=== PATIENT | male | born 1935 | race Caucasian/White ===

== ENCOUNTER → 2017-07-24 | Outpatient (CLI) | payer MEDICARE, OTHER ==
[~2017-07-24] MED LIST: COUMADIN; DOXY100 PO; HCTZ; HYDACE10B PO; LEVSOD100; LEVSOD25; LOSA25 PO; LOSARTIN; METO25ER PO; METOPROLOL; NORVASC; OXYACE5T PO; PROM25 PO; TAMS.4ER PO; WARF7.5 PO
== END ==
LOC: PLD 13:47 → LAB SHORT 13:47
DX: D48.5 Neoplasm of uncertain behavior of skin (principal)
CPT/HCPCS: 88305

== ENCOUNTER → 2019-05-20 | Outpatient (CLI) | payer MEDICARE, OTHER ==
[~2019-05-20] MED LIST changes: +CHOL10002; +ELIQUIS5 MG PO; +POTCIT10
[2019-05-20 13:12] LABS: Hematocrit 45.2 % (37.0-53.0); Hemoglobin 14.3 g/dL (13.5-17.5); Mean Corpuscular HGB 31.4 pg (26.0-34.0); Mean Corpuscular HGB Conc 31.6 g/dL (31.5-36.5); Mean Corpuscular Volume 99 fL (80-100); Mean Platelet Volume 12.8 fL (9.1-12.4); Platelet Count 143 K/mm3 (150-400); RDW Standard Deviation 50.8 fL (35.1-46.3); Red Blood Cell Count 4.56 M/mm3 (4.30-5.90); White Blood Cell Count 13.98 K/mm3 (4.00-11.30)
[2019-05-20 14:44] LABS: BASOPHILS PERCENT MAN 0 % (0-2); EOSINOPHILS PERCENT MAN 0 % (0-6); LYMPHOCYTES ABSOLUTE MAN 11.88 K/mm3 (0.84-5.20); LYMPHOCYTES PERCENT MAN 85 % (21-46); MONOCYTES ABSOLUTE MAN 0.13 K/mm3 (0.16-1.47); MONOCYTES PERCENT MAN 1 % (4-13); NEUTROPHILS ABSOLUTE MAN 1.95 K/mm3 (1.96-9.15); SEG NEUTROPHILS PERCENT MAN 14 % (41-73); TOTAL CELLS COUNTED 100
== END | disposition home or self-care (01) ==
LOC: LAB 12:35 → LAB SHORT 12:35
PROVIDERS: Internal Medicine Hematology & Oncology
DX: C91.10 Chronic lymphocytic leukemia of B-cell type not having achieved remission (principal); R53.81 Other malaise; R53.83 Other fatigue; R73.9 Hyperglycemia, unspecified; M81.8 Other osteoporosis without current pathological fracture
CPT/HCPCS: 83036; 85025

== ENCOUNTER → 2020-05-18 | Outpatient (CLI) | payer MEDICARE, OTHER | LOC: LAB SHORT 15:15 → PLD 15:15 → LAB 15:15 | DX: E55.9 Vitamin D deficiency, unspecified (principal); E53.8 Deficiency of other specified B group vitamins | CPT/HCPCS: 82306; 82607; 82746 ==

== ENCOUNTER 2020-08-20 18:01 | Emergency (ER) | payer MEDICARE, OTHER ==
[~2020-08-20] VITALS: Ht 182.9 cm; Wt 77.1 kg
[2020-08-20 19:31] LABS: Hematocrit 44.6 % (37.0-53.0); Hemoglobin 14.6 g/dL (13.5-17.5); Mean Corpuscular HGB 31.3 pg (26.0-34.0); Mean Corpuscular HGB Conc 32.7 g/dL (31.5-36.5); Mean Corpuscular Volume 96 fL (80-100); Platelet Count 146 K/mm3 (150-400); RDW Coefficient Variation 13.2 % (11.7-14.2); RDW Standard Deviation 46.8 fL (35.1-46.3); Red Blood Cell Count 4.67 M/mm3 (4.30-5.90)
[2020-08-20 19:49] LABS: Calcium, Blood 9.6 mg/dL (8.5-10.1); Creatinine, Blood 1.25 mg/dL (0.60-1.20); Potassium, Blood 4.7 mmol/L (3.5-5.5)
[2020-08-20 20:22] LABS: BAND PERCENT MAN 1 % (0-8); BASOPHILS PERCENT MAN 0 % (0-2); EOSINOPHILS PERCENT MAN 0 % (0-6); LYMPHOCYTES ABSOLUTE MAN 13.38 K/mm3 (0.84-5.20); LYMPHOCYTES PERCENT MAN 56 % (21-46); MONOCYTES ABSOLUTE MAN 1.43 K/mm3 (0.16-1.47); MONOCYTES PERCENT MAN 6 % (4-13); NEUTROPHILS ABSOLUTE MAN 9.08 K/mm3 (1.96-9.15); SEG NEUTROPHILS PERCENT MAN 37 % (41-73); TOTAL CELLS COUNTED 100
[2020-08-20 20:29] LABS: Creatine Kinase MB 2.8 ng/mL (0.0-3.6); Creatine Kinase MB Index 0.8 (0.0-4.0)
== END 2020-08-20 20:54 | disposition home or self-care (01) ==
LOC: ER 18:01
PROVIDERS: Emergency Medicine
DX: S87.82XA Crushing injury of left lower leg, initial encounter (principal); S81.812A Laceration without foreign body, left lower leg, initial encounter; S80.811A Abrasion, right lower leg, initial encounter; I48.91 Unspecified atrial fibrillation; Z79.01 Long term (current) use of anticoagulants; Z79.899 Other long term (current) drug therapy; W23.0XXA Caught, crushed, jammed, or pinched between moving objects, initial encounter
CPT/HCPCS: 36415; 73590; 80048; 82550; 82553; 85025; 90471; 90714; 99283-25

== ENCOUNTER 2020-09-07 04:53 | Day surgery (SDC) | payer MEDICARE, OTHER | END 2020-09-07 23:41 | disposition home or self-care (01) | LOC: WOUND 04:53 | DX: L97.926 Non-pressure chronic ulcer of unspecified part of left lower leg with bone involvement without evidence of necrosis (principal); L97.919 Non-pressure chronic ulcer of unspecified part of right lower leg with unspecified severity; I73.9 Peripheral vascular disease, unspecified | CPT/HCPCS: 87071; 87075; 87205; A9270; G0463 ==

== ENCOUNTER 2020-09-14 02:24 | Day surgery (SDC) | payer MEDICARE, OTHER | END 2020-09-14 22:50 | disposition home or self-care (01) | LOC: WOUND 02:24 | DX: L97.926 Non-pressure chronic ulcer of unspecified part of left lower leg with bone involvement without evidence of necrosis (principal); L97.919 Non-pressure chronic ulcer of unspecified part of right lower leg with unspecified severity; I73.9 Peripheral vascular disease, unspecified | CPT/HCPCS: A9270 ==

== ENCOUNTER 2020-09-21 00:20 | Day surgery (SDC) | payer MEDICARE, OTHER | END 2020-09-21 22:46 | disposition home or self-care (01) | LOC: WOUND 00:20 | DX: L97.926 Non-pressure chronic ulcer of unspecified part of left lower leg with bone involvement without evidence of necrosis (principal); L97.919 Non-pressure chronic ulcer of unspecified part of right lower leg with unspecified severity; I73.9 Peripheral vascular disease, unspecified | CPT/HCPCS: A9270 ==

== ENCOUNTER 2020-09-28 04:39 | Day surgery (SDC) | payer MEDICARE, OTHER | END 2020-09-28 23:02 | disposition home or self-care (01) | LOC: WOUND 04:39 | DX: L97.926 Non-pressure chronic ulcer of unspecified part of left lower leg with bone involvement without evidence of necrosis (principal); L97.919 Non-pressure chronic ulcer of unspecified part of right lower leg with unspecified severity; I73.9 Peripheral vascular disease, unspecified | CPT/HCPCS: A9270 ==

== ENCOUNTER 2020-10-05 03:38 | Day surgery (SDC) | payer MEDICARE, OTHER | END 2020-10-05 23:49 | disposition home or self-care (01) | LOC: WOUND 03:38 | DX: L97.926 Non-pressure chronic ulcer of unspecified part of left lower leg with bone involvement without evidence of necrosis (principal); L97.919 Non-pressure chronic ulcer of unspecified part of right lower leg with unspecified severity; I73.9 Peripheral vascular disease, unspecified | CPT/HCPCS: A9270 ==

== ENCOUNTER 2020-10-12 04:15 | Day surgery (SDC) | payer MEDICARE, OTHER | END 2020-10-12 22:50 | disposition home or self-care (01) | LOC: WOUND 04:15 | DX: L97.926 Non-pressure chronic ulcer of unspecified part of left lower leg with bone involvement without evidence of necrosis (principal); L97.919 Non-pressure chronic ulcer of unspecified part of right lower leg with unspecified severity; I73.9 Peripheral vascular disease, unspecified | CPT/HCPCS: A9270 ==

== ENCOUNTER 2020-10-19 00:55 | Day surgery (SDC) | payer MEDICARE, OTHER | END 2020-10-19 23:27 | disposition home or self-care (01) | LOC: WOUND 00:55 | DX: L97.926 Non-pressure chronic ulcer of unspecified part of left lower leg with bone involvement without evidence of necrosis (principal); L97.919 Non-pressure chronic ulcer of unspecified part of right lower leg with unspecified severity; I73.9 Peripheral vascular disease, unspecified | CPT/HCPCS: A9270 ==

== ENCOUNTER 2020-10-26 04:05 | Day surgery (SDC) | payer MEDICARE, OTHER | END 2020-10-26 23:58 | disposition home or self-care (01) | LOC: WOUND 04:05 | DX: L97.922 Non-pressure chronic ulcer of unspecified part of left lower leg with fat layer exposed (principal); L97.919 Non-pressure chronic ulcer of unspecified part of right lower leg with unspecified severity; I73.9 Peripheral vascular disease, unspecified | CPT/HCPCS: A9270; G0463 ==

== ENCOUNTER 2020-11-02 06:30 | Day surgery (SDC) | payer MEDICARE, OTHER | END 2020-11-02 22:49 | disposition home or self-care (01) | LOC: WOUND 06:30 | DX: S81.802A Unspecified open wound, left lower leg, initial encounter (principal); X58.XXXA Exposure to other specified factors, initial encounter; L97.922 Non-pressure chronic ulcer of unspecified part of left lower leg with fat layer exposed; L97.919 Non-pressure chronic ulcer of unspecified part of right lower leg with unspecified severity; I73.9 Peripheral vascular disease, unspecified | CPT/HCPCS: A9270 ==

== ENCOUNTER 2020-11-09 04:56 | Day surgery (SDC) | payer MEDICARE, OTHER | END 2020-11-09 22:49 | disposition home or self-care (01) | LOC: WOUND 04:56 | DX: S81.802A Unspecified open wound, left lower leg, initial encounter (principal); S81.801A Unspecified open wound, right lower leg, initial encounter; X58.XXXA Exposure to other specified factors, initial encounter; L97.922 Non-pressure chronic ulcer of unspecified part of left lower leg with fat layer exposed; L97.919 Non-pressure chronic ulcer of unspecified part of right lower leg with unspecified severity; I73.9 Peripheral vascular disease, unspecified | CPT/HCPCS: A9270 ==

== ENCOUNTER 2020-11-16 02:34 | Day surgery (SDC) | payer MEDICARE, OTHER | END 2020-11-16 23:30 | disposition home or self-care (01) | LOC: WOUND 02:34 | DX: L97.922 Non-pressure chronic ulcer of unspecified part of left lower leg with fat layer exposed (principal); L97.919 Non-pressure chronic ulcer of unspecified part of right lower leg with unspecified severity; I73.9 Peripheral vascular disease, unspecified | CPT/HCPCS: G0463 ==

== ENCOUNTER 2020-11-19 06:29 | Day surgery (SDC) | payer MEDICARE, OTHER ==
[~2020-11-19] VITALS: Ht 185.4 cm; Wt 76.2 kg
[2020-11-19 07:49] LABS: International Normalized Ratio 0.95; Prothrombin Time Results 10.3 Sec (9.7-11.5)
[2020-11-19 07:52] LABS: Bun/Creatinine Ratio 19.8 (12.0-20.0); Calcium, Blood 8.9 mg/dL (8.5-10.1); Creatinine, Blood 1.21 mg/dL (0.60-1.20); Hemoglobin 14.2 g/dL (13.5-17.5); Mean Corpuscular HGB 30.9 pg (26.0-34.0); Mean Corpuscular HGB Conc 32.3 g/dL (31.5-36.5); Mean Corpuscular Volume 96 fL (80-100); NRBC ABSOLUTE 0.02 K/mm3 (0.00-0.02); NRBC Auto 0.1 /100 WBC (0.0-0.2); Potassium, Blood 4.1 mmol/L (3.5-5.5); RDW Coefficient Variation 13.8 % (11.7-14.2); Red Blood Cell Count 4.59 M/mm3 (4.30-5.90); White Blood Cell Count 19.39 K/mm3 (4.00-11.30)
[2020-11-19 07:53] LABS: Mean Platelet Volume 12.4 fL (9.1-12.4)
[2020-11-19 09:07] LABS: BASOPHILS ABSOLUTE MAN 0.19 K/mm3 (0.00-0.23); BASOPHILS PERCENT MAN 1 % (0-2); EOSINOPHILS PERCENT MAN 0 % (0-6); LYMPHOCYTES ABSOLUTE MAN 16.09 K/mm3 (0.84-5.20); LYMPHOCYTES PERCENT MAN 83 % (21-46); MONOCYTES ABSOLUTE MAN 0.58 K/mm3 (0.16-1.47); MONOCYTES PERCENT MAN 3 % (4-13); NEUTROPHILS ABSOLUTE MAN 2.52 K/mm3 (1.96-9.15); SEG NEUTROPHILS PERCENT MAN 13 % (41-73); TOTAL CELLS COUNTED 100
[2020-11-19 09:28] LABS: Platelet Count 101 K/mm3 (150-400)
[2020-11-19] MEDS ORDERED: CLOP75 PO (10:53)
[2020-11-19] MEDS ORDERED: Crestor20 MG PO (10:53)
[2020-11-19 11:40] LABS: Alanine Aminotransfer (ALT/SGP 24 U/L (12-78); Albumin, Blood 3.7 g/dL (3.4-5.0); Albumin/Globulin Ratio 1.2 (0.8-1.8); Alk Phos 79 U/L (50-136); Aspartate Aminotrans (AST/SGOT 25 U/L (12-37); Bilirubin, Direct <0.1 mg/dL (0.0-0.3); Bilirubin, Indirect Unable to Calculate mg/dL (0.1-0.7); Bilirubin, Total 0.4 mg/dL (0.1-1.0); Cholesterol 212 mg/dL (50-200); Globulin, Blood 3.2 g/dL (2.2-4.0); Total Protein, Blood 6.9 g/dL (6.4-8.2); Triglycerides 63 mg/dL (30-160)
--- NOTE | 2020-11-19 13:00 | NUR ---
PT AMB TO BATHROOM /C SBA. TOLERATED WELL. -BLEEDING OR SWELLING R GROIN AREA.
== END 2020-11-19 13:46 | disposition home or self-care (01) ==
LOC: MHTC 06:29
PROVIDERS: Internal Medicine
DX: I70.213 Atherosclerosis of native arteries of extremities with intermittent claudication, bilateral legs (principal); I10 Essential (primary) hypertension
CPT/HCPCS: 75716; 75774; 76937; 80048; 80076; 82465; 84478; 85025; 85347; 85610; 99152; 99153; A9270; C1725; C1760; C1769; C1887; C1894; C2623; C9764; J2250; J3010; J7030; J7050; Q9967

== ENCOUNTER 2020-11-23 02:01 | Day surgery (SDC) | payer MEDICARE, OTHER ==
[~2020-11-23 02:01] MED LIST changes: +CLOP75 PO; +Crestor20 MG PO
== END 2020-11-23 23:00 | disposition home or self-care (01) ==
LOC: WOUND 02:01
DX: L97.922 Non-pressure chronic ulcer of unspecified part of left lower leg with fat layer exposed (principal); I73.9 Peripheral vascular disease, unspecified
CPT/HCPCS: G0463

== ENCOUNTER → 2022-03-20 | Outpatient (CLI) | payer MEDICARE, OTHER ==
[2022-03-20 18:58] LABS: Percent Saturation 42.3 % (20.0-50.0)
== END | disposition home or self-care (01) ==
LOC: LAB SHORT 11:30
PROVIDERS: Internal Medicine Hematology & Oncology
DX: C91.10 Chronic lymphocytic leukemia of B-cell type not having achieved remission (principal); I10 Essential (primary) hypertension; E53.8 Deficiency of other specified B group vitamins
CPT/HCPCS: 82607; 82728; 82746; 83540; 83550

== ENCOUNTER → 2025-03-17 | Outpatient (CLI) | payer MEDICARE, OTHER ==
[2025-03-17 16:26] LABS: BASOPHILS ABSOLUTE AUTO 0.05 K/mm3 (0.00-0.23); BASOPHILS PERCENT AUTO 0 % (0-2); EOSINOPHILS ABSOLUTE AUTO 0.05 K/mm3 (0.00-0.68); EOSINOPHILS PERCENT AUTO 0 % (0-6); Hematocrit 42.2 % (37.0-53.0); Hemoglobin 13.7 g/dL (13.5-17.5); IMMATURE GRAN ABSOLUTE AUTO 0.06 K/mm3 (0.00-0.10); IMMATURE GRAN PERCENT AUTO 0 % (0-1); LYMPHOCYTES ABSOLUTE AUTO 14.90 K/mm3 (0.84-5.20); LYMPHOCYTES PERCENT AUTO 77 % (21-46); MONOCYTES ABSOLUTE AUTO 0.42 K/mm3 (0.16-1.47); MONOCYTES PERCENT AUTO 2 % (4-13); Mean Corpuscular HGB Conc 32.5 g/dL (31.5-36.5); Mean Corpuscular Volume 99 fL (80-100); NEUTROPHILS ABSOLUTE AUTO 3.99 K/mm3 (1.96-9.15); NEUTROPHILS PERCENT AUTO 20 % (41-73); NRBC ABSOLUTE 0.00 K/mm3 (0.00-0.02); NRBC Auto 0.0 /100 WBC (0.0-0.2); Platelet Count 170 K/mm3 (150-400); RDW Coefficient Variation 13.9 % (11.7-14.2); RDW Standard Deviation 50.7 fL (35.1-46.3)
[2025-03-17 16:43] LABS: Alanine Aminotransfer (ALT/SGP 21.0 U/L (12-78); Albumin, Blood 4.3 g/dL (3.4-5.0); Albumin/Globulin Ratio 1.3 (0.8-1.8); Anion Gap 11.0 mmol/L (3-11); Aspartate Aminotrans (AST/SGOT 17.0 U/L (12-37); Bilirubin, Total 0.5 mg/dL (0.1-1.0); Blood Urea Nitrogen 47.0 mg/dL (8-24); CO2, Blood 31.0 mmol/L (21-32); Calcium, Blood 9.3 mg/dL (8.5-10.1); Chloride, Blood 105.0 mmol/L (98-108); Creatinine, Blood 1.25 mg/dL (0.60-1.20); Globulin, Blood 3.3 g/dL (2.2-4.0); Glucose, Blood 115.0 mg/dL (70-99); Potassium, Blood 4.7 mmol/L (3.5-5.5); Sodium, Blood 142.0 mmol/L (136-145); Thyroid Stimulating Hormone 1.808 uIU/mL (0.360-4.800); Total Protein, Blood 7.6 g/dL (6.4-8.2)
== END ==
LOC: LAB SHORT 16:21 → LAB 16:21
PROVIDERS: Physician Assistant
DX: R00.1 Bradycardia, unspecified (principal); R63.4 Abnormal weight loss
CPT/HCPCS: 80053; 84443; 85025